=== PATIENT | female | born 1965 | race Caucasian/White ===

== ENCOUNTER 2019-08-27 11:30 | Emergency (ER) | payer BC ==
[~2019-08-27 11:30] MED LIST: ATOR10TA69 PO; LEVO137T24 PO; SUMA4PEN SQ; TRIA1CAP6 PO
[2019-08-27] MEDS ORDERED: HYDROCODONE/ACETAMINOPHEN 5/325 MG TAB ONE (12:10)
[2019-08-27] MEDS ORDERED: ONDANSETRON ODT 4 MG TAB ONE (12:10)
== END 2019-08-27 14:03 | disposition home or self-care (01) ==
LOC: EDH 11:30
DX: S63.592A Other specified sprain of left wrist, initial encounter (principal); E78.00 Pure hypercholesterolemia, unspecified; Z72.0 Tobacco use; W18.39XA Other fall on same level, initial encounter; Y93.89 Activity, other specified; Y92.098 Other place in other non-institutional residence as the place of occurrence of the external cause; Y99.8 Other external cause status
CPT/HCPCS: 29125; 73110; 73610

== ENCOUNTER 2023-09-15 08:00 | Observation (INO) | payer BC ==
[2023-09-12 13:58] LABS: BASOPHILS % (AUTO) 1.2 % (0.0-5.0); EOSINOPHILS # (AUTO) 0.17 K/uL (0.00-0.70); EOSINOPHILS % (AUTO) 2.1 % (0.0-8.0); HEMATOCRIT 46.3 % (36-48); IMMATURE GRANULOCYTE ABSOLUTE 0.03 K/uL (0-1); LYMPHOCYTES # (AUTO) 2.8 K/uL (1.0-4.8); LYMPHOCYTES % (AUTO) 34.1 % (21.0-51.0); MEAN CORPUSCULAR HEMOGLOBIN 28.1 pg (27.0-33.0); MEAN CORPUSCULAR HGB CONC 31.7 g/dL (32.0-36.0); MEAN CORPUSCULAR VOLUME 88.5 fL (79-99); MONOCYTES # (AUTO) 0.6 K/uL (0.1-1.0); MONOCYTES % (AUTO) 6.6 % (3.0-13.0); NEUTROPHILS # (AUTO) 4.6 K/uL (1.8-7.7); NEUTROPHILS % (AUTO) 55.6 % (40.0-77.0); PLATELET COUNT (AUTO) 395 K/uL (130-400); RED BLOOD CELL COUNT(AUTO) 5.23 MIL/uL (4.00-5.50); RED CELL DISTRIBUTION WIDTH 12.6 % (11.0-15.5); WHITE BLOOD COUNT (AUTO) 8.3 K/uL (4.8-10.8)
[2023-09-12 14:07] LABS: CREATININE 1.1 mg/dL (0.5-1.5); POTASSIUM 4.4 mmol/L (3.5-5.1)
[2023-09-12 14:24] VITALS: BP 159/78; PULSE 91; RESP 15
[2023-09-15] VITALS (26 sets, daily range): BP systolic 133–164; BP diastolic 69–95; PULSE 74–104; RESP 13–20; O2SAT 96
[~2023-09-15] VITALS: Ht 167.6 cm; Wt 81.6 kg
[~2023-09-15 08:00] MED LIST changes: -ATOR10TA69 PO; +FAMO40TA7 PO; +LEVO100T6 PO; -LEVO137T24 PO; +OMEP40CA21 PO; +ROSU20TA23 PO; -SUMA4PEN SQ; -TRIA1CAP6 PO; +linzess PO
[2023-09-15] MEDS: LACTATED RINGERS 1000ML 1,000 ML IV ONE (08:41)
[2023-09-15] MEDS ORDERED: LIDOCAINE PF 100MG/5ML (2%) SYRINGE 5ML ONE (12:31)
[2023-09-15] MEDS ORDERED: GLYCOPYRROLATE 0.2 MG/ML 5 ML VIAL ONE (12:31)
[2023-09-15] MEDS ORDERED: MIDAZOLAM HCL 1 MG/ML 2ML VIAL ONE (12:31)
[2023-09-15] MEDS ORDERED: ROCURONIUM BROMIDE 10MG/1ML 5ML VL ONE (12:31)
[2023-09-15] MEDS ORDERED: FENTANYL CITRATE PF 50 MCG/1 ML 5ML AMP IV ONE (12:32)
[2023-09-15] MEDS ORDERED: PROPOFOL 10 MG/ML 20ML VIAL IV ONE (12:32)
[2023-09-15] MEDS ORDERED: SUCCINYLCHOLINE CHLORIDE 20 MG/ML 10 ML VIAL ONE (12:36)
[2023-09-15] MEDS: CEFAZOLIN SODIUM 2 GM VIAL ONE (12:40)
[2023-09-15] MEDS: BUPIVACAINE/PF 0.25% 30ML VIAL IJ ONE (13:05)
[2023-09-15] MEDS ORDERED: ONDANSETRON 4MG INJ ONE ×2 (13:22→14:08)
[2023-09-15] MEDS ORDERED: DiphenhydrAMINE HCL 50 MG/ML VIAL ONE (14:09)
[2023-09-15] MEDS ORDERED: PROCHLORPERAZINE 10MG/2ML INJ IV PRN (14:30)
[2023-09-15] MEDS ORDERED: KETOROLAC 30MG VIAL (30MG/ML) IV PRN (14:30)
[2023-09-15] MEDS ORDERED: ONDANSETRON 4MG INJ IVP PRN (14:30)
[2023-09-15] MEDS ORDERED: HYDROCODONE/ACETAMINOPHEN 7.5/325 MG 15 ML UDCUP PO PRN (14:30)
[2023-09-15] MEDS ORDERED: NEOSTIGMINE METHYLSULFATE 1MG/ML IV ONE (14:36)
[2023-09-15] MEDS: METOCLOPRAMIDE 10 MG/2 ML VIAL ONE (15:41)
[2023-09-15] MEDS: ONDANSETRON 4MG INJ ONE (15:41)
[2023-09-15] MEDS: MORPHINE 4 MG SYG IVP PRN ×2 (19:06→21:26)
[2023-09-15] MEDS: D5LR-20 MEQ KCL 1000 ML 1,000 ML IV SCH (22:30)
[2023-09-16] VITALS: BP 149/86; PULSE 99; RESP 18
[2023-09-16] MEDS: ENOXAPARIN SODIUM 30 MG/0.3 ML SQ SCH (01:32)
[2023-09-16 04:00] VITALS: BP 152/71; PULSE 95; RESP 18
[2023-09-16 07:43] VITALS: O2SAT 96
[2023-09-16 08:00] VITALS: BP 140/79; PULSE 87; RESP 16
[2023-09-16] MEDS: FAMOTIDINE 20MG VIAL IV ONE (08:16)
[2023-09-16] MEDS: HYDROMORPHONE 1 MG INJ ONE (08:16)
[2023-09-16 11:00] VITALS: BP 139/84; PULSE 102; RESP 16
[2023-09-16 16:00] VITALS: BP 152/83; PULSE 78; RESP 16
== END 2023-09-16 17:00 | disposition home or self-care (01) ==
LOC: DAH 08:00 → DAHIP 08:01 → INTOOBSV 08:01 → 3AH 16:01
PROVIDERS: ADMIT Surgery; ATTEND Surgery
DX: K44.9 Diaphragmatic hernia without obstruction or gangrene (principal); I10 Essential (primary) hypertension; E78.5 Hyperlipidemia, unspecified; L98.7 Excessive and redundant skin and subcutaneous tissue; E03.9 Hypothyroidism, unspecified; K21.9 Gastro-esophageal reflux disease without esophagitis; Z90.710 Acquired absence of both cervix and uterus; Z68.29 Body mass index [BMI] 29.0-29.9, adult; Z79.899 Other long term (current) drug therapy
CPT/HCPCS: 43282; S2900; 36415; 43235; 80048; 85025; 86850; 86900; 86901; 96372; 96374; 96376; G0378; J0330; J1170; J1200; J1650; J2001; J2250; J2270; J2405; J2704; J2710; J2765; J3010; J3490; J7030; J7120; A4213; A4215; A4221; A4222; A4223; A4600; A4663; A4930; C1781; G0168; J0665; J0690